=== PATIENT | female | born 1955 | race Caucasian/White ===

== ENCOUNTER 2016-08-11 17:13 | Emergency (ER) | payer MEDICARE, OTHER ==
[~2016-08-11] VITALS: Ht 170.2 cm; Wt 78.0 kg
[~2016-08-11 17:13] MED LIST: ACIDOPHILUS1 CAP PO; AMRIX15 MG PO; ATARAX10 MG PO; BIOFREEZE89 ML TOP; BUSPAR10 MG PO; CALCIUM + VITA1 EACH PO; CALTRATE 600 WI1 TAB PO; CITRACAL-VIT D1 EAC1 PO; COLACE100 MG PO; CYMBALTA60 MG PO; EPIPEN0.3 MG/0.3 SUBCUT; FLONASE16 GM NASBOTH; KLONOPIN1 MG PO; LIDALL 4%-1% P1 EACH TRDERM; LINZESS290 MCG PO; MAGNESIUM OXID400 MG PO; MELATONIN5 M2 PO; MOBIC15 MG PO; MOVANTIK25 MG PO; MULTIPLE VITAM1 EACH PO; NEURONTIN600 MG PO; NORCO 325-5 MG1 TAB PO; NYSTOP15 GM TOP; OCUVITE EYE +1 EACH PO; OMEPRAZOLE20 MG PO; OXYCODONE HCL5 MG PO; PERCOCET 7.5-31 EACH PO; RELISTOR12 MG/0.1 IM; SENNA-S TABLET1 EACH PO; SILVADENE 1%85 GM TOP; TRAZODONE HCL100 MG PO; ULTRAM50 MG PO; VISION PLUS LU1 EACH PO; VITAMIN B-1000 MCG/1 IM; VITAMIN C500 M1 PO; VITAMIN D3400 UNI1 PO; WELLBUTRIN XL150 MG PO; ZOLOFT50 MG PO; ZYRTEC10 M3 PO; [UNRECOGNIZED DRUG - OTHER] PO
[2016-08-11] MEDS ORDERED: PERCOCET 325-51 TAB PO (17:37)
[2016-08-11] MEDS ORDERED: GLUCOPHAGE500 MG PO (17:39)
[2016-08-11] MEDS ORDERED: BACTROBAN NASAL1 GM NAS (17:41)
[2016-08-11] MEDS ORDERED: TRAZODONE HCL100 MG PO (17:46)
[2016-09-25] MEDS ORDERED: PERCOCET 7.5-31 EACH PO (01:19)
[2016-09-25] MEDS ORDERED: LIPITOR40 MG PO (01:24)
[2016-09-25] MEDS ORDERED: TESSALON PERLE100 M1 PO (01:26)
[2016-09-25] MEDS ORDERED: OCUVITE SOFTGE1 EACH PO (01:27)
[2016-09-25] MEDS ORDERED: ULTRAM50 MG PO (01:29)
== END 2016-08-11 18:40 | disposition short-term general hospital (02) ==
LOC: ER 17:13 → RAD 17:15 → ER 17:15
DX: S40.011A Contusion of right shoulder, initial encounter (principal); W01.10XA Fall on same level from slipping, tripping and stumbling with subsequent striking against unspecified object, initial encounter; Z79.899 Other long term (current) drug therapy

== ENCOUNTER → 2016-08-22 | Outpatient (CLI) | payer MEDICARE, OTHER ==
[~2016-08-22] MED LIST changes: +BACTROBAN NASAL1 GM NAS; +GLUCOPHAGE500 MG PO; +LIPITOR40 MG PO; +OCUVITE SOFTGE1 EACH PO; +PERCOCET 325-51 TAB PO; +TESSALON PERLE100 M1 PO
== END | disposition short-term general hospital (02) ==
LOC: CLORTH 09:09
DX: S46.011D Strain of muscle(s) and tendon(s) of the rotator cuff of right shoulder, subsequent encounter (principal); M25.511 Pain in right shoulder; E11.9 Type 2 diabetes mellitus without complications; F32.9 Major depressive disorder, single episode, unspecified; F41.9 Anxiety disorder, unspecified; Z98.890 Other specified postprocedural states; Z90.710 Acquired absence of both cervix and uterus; Z90.49 Acquired absence of other specified parts of digestive tract

== ENCOUNTER → 2016-09-05 | Outpatient (CLI) | payer MEDICARE, OTHER | END | disposition short-term general hospital (02) | LOC: CLORTH 05:42 | DX: S49.91XA Unspecified injury of right shoulder and upper arm, initial encounter (principal); M75.81 Other shoulder lesions, right shoulder; S46.011D Strain of muscle(s) and tendon(s) of the rotator cuff of right shoulder, subsequent encounter; M19.011 Primary osteoarthritis, right shoulder; M19.012 Primary osteoarthritis, left shoulder ==

== ENCOUNTER 2016-09-24 21:54 | Emergency (ER) | payer MEDICARE, OTHER ==
[~2016-09-24] VITALS: Ht 172.7 cm; Wt 78.0 kg
[~2016-09-24 21:54] MED LIST changes: -LIPITOR40 MG PO; -OCUVITE SOFTGE1 EACH PO; -TESSALON PERLE100 M1 PO
[2016-09-25] MEDS ORDERED: PERCOCET 7.5-31 EACH PO (01:19)
[2016-09-25] MEDS ORDERED: LIPITOR40 MG PO (01:24)
[2016-09-25] MEDS ORDERED: TESSALON PERLE100 M1 PO (01:26)
[2016-09-25] MEDS ORDERED: OCUVITE SOFTGE1 EACH PO (01:27)
[2016-09-25] MEDS ORDERED: ULTRAM50 MG PO (01:29)
== END 2016-09-24 23:10 | disposition short-term general hospital (02) ==
LOC: ER 21:54
DX: S80.12XA Contusion of left lower leg, initial encounter (principal); Z88.1 Allergy status to other antibiotic agents; Z79.899 Other long term (current) drug therapy; W20.8XXA Other cause of strike by thrown, projected or falling object, initial encounter
CPT/HCPCS: J1170

== ENCOUNTER → 2016-10-17 | Outpatient (CLI) | payer MEDICARE, OTHER ==
[~2016-10-17] MED LIST changes: +LIPITOR40 MG PO; +OCUVITE SOFTGE1 EACH PO; +TESSALON PERLE100 M1 PO
== END | disposition short-term general hospital (02) ==
LOC: CLORTH 10-03 03:23
DX: M67.921 Unspecified disorder of synovium and tendon, right upper arm (principal); M75.111 Incomplete rotator cuff tear or rupture of right shoulder, not specified as traumatic; M75.41 Impingement syndrome of right shoulder